=== PATIENT | female | born 1960 | race African-American/Black ===

== ENCOUNTER 2016-10-30 06:03 | Day surgery (SDC) | payer BC ==
--- NOTE | ~2016-10-30 | EGD ---
EGD REPORT [facility] [address] [place]. [id number] NAME: CASS MONTOYA : 58 STATUS : [facility] [place] PAT#: [id number] AGE: 56 ADM/REG DATE : 10/30/16 MR#: [id number] REPORT SERV DATE: 10/30/16 DICTATED BY: AMBROSE WHEAT DATE: 10/30/16 REPORT STATUS : Draft TRANSCRIBED BY: [facility] DATE: 10/30/16 [facility] Center Patient Name: Cass Montoya Date of : 1960 Attending MD: AMBROSE WHEAT MD Procedure Date No Time: 10/30/2016 Procedure: Colonoscopy Indications: High risk colon cancer surveillance: Personal history of sessile serrated colon polyp (10 mm or greater in size). Patient Profile: Informed consent was obtained from the patient by me prior to the procedure. Risks, benefits, and alternatives were discussed including the risk of bleeding, perforation, infection, reaction to medicine, missed lesion, and cardiopulmonary complications. Referring MD: EZ CLAUDIO Medicines: Monitored Anesthesia Care Complications: No immediate complications. Procedure: Pre-Anesthesia Assessment: - ASA Grade Assessment: III - A patient with severe systemic disease. After I obtained informed consent, the scope was passed under direct vision. Throughout the procedure, the patient's blood pressure, pulse, and oxygen saturations were monitored continuously. The PCF [id number] was introduced through the anus and advanced to the DC where looping and tight angles precluded further passage; same results with thin diameter pediatric endoscope. The colonoscope was slowly withdrawn with careful examination all mucosal surfaces; retroflexion performed in rectum. The colonoscopy was performed without difficulty. The patient tolerated the procedure well. The quality of the bowel preparation was adequate. The rectum was photographed. CO2 utilitzed. Findings: A flat polyp was found in the sigmoid colon. The polyp was 5 mm in size. The polyp was removed with a cold biopsy forceps. Resection and retrieval were complete. Impression: - One 5 mm polyp in the sigmoid colon. Resected and retrieved. Recommendation: - Regular diet. - Patient has a contact number available for emergencies. The signs and symptoms of potential delayed EGD REPORT [address] [place]. [address] NAME: CASS MONTOYA : [birth year] STATUS : [facility] [place] PAT#: [id number] AGE: 56 ADM/REG DATE : 10/30/16 MR#: [id number] REPORT SERV DATE: 10/30/16 DICTATED BY: AMBROSE WHEAT DATE: 10/30/16 REPORT STATUS : Draft TRANSCRIBED BY: [employer] DATE: 10/30/16 complications were discussed with the patient. Return to normal activities tomorrow. Written discharge instructions were provided to the patient. - Continue present medications. - Await pathology results. - Repeat colonoscopy for surveillance based on pathology results. - [facility] re: h/o colon polyps. Procedure Code(s): --- Professional --- 67947, Colonoscopy, flexible, proximal to splenic flexure; with biopsy, single or multiple Diagnosis Code(s): --- Professional --- D12.5, Benign neoplasm of sigmoid colon Z86.010, Personal history of colonic polyps CPT copyright 2013 [employer]. All rights reserved. The codes documented in this report are preliminary and upon crop pest control specialist review may be revised to meet current compliance requirements. AMBROSE WHEAT MD 10/30/2016 8:33 AM This report has been signed electronically. Number of Addenda: 0 Note Initiated On: 10/30/2016 7:52 AM Scope Withdrawal Time 0 hours 0 minutes 0 seconds [address] [place] [id number]
[~2016-10-30 06:03] MED LIST: AVAPRO300 MG PO; CALTRA600D PO; COR40 PO; CUTIVATE 0.005% TOP; ESTRADIOL0.05 MG TD; GLUCOPHXR PO; MAXIMUM D3 PO; MICARDIS40 PO; MOBIC15 MG PO; NORV5 PO; PRAV10 PO; SPIRO25 PO; TUMSROLL PO
== END 2016-10-30 23:59 | disposition home health service (06) ==
LOC: DMU 06:03
PROVIDERS: Internal Medicine Gastroenterology
PROC: 0DBN8ZX Excision of Sigmoid Colon, Via Natural or Artificial Opening Endoscopic, Diagnostic (ICD-10-PCS; principal; 2016-10-30 08:00)
DX: Z12.11 Encounter for screening for malignant neoplasm of colon (principal); D12.5 Benign neoplasm of sigmoid colon; I10 Essential (primary) hypertension; E11.9 Type 2 diabetes mellitus without complications; G47.33 Obstructive sleep apnea (adult) (pediatric); Z86.010 Personal history of colon polyps; Z88.8 Allergy status to other drugs, medicaments and biological substances; Z77.22 Contact with and (suspected) exposure to environmental tobacco smoke (acute) (chronic); Z90.710 Acquired absence of both cervix and uterus; Z98.51 Tubal ligation status; Z98.890 Other specified postprocedural states
CPT/HCPCS: 82962; 88305